=== PATIENT | female | born 1935 | race Caucasian/White ===

== ENCOUNTER → 2020-03-01 13:51 | Outpatient (BNVA) | payer MEDICARE, MEDICAID, SELFPAY | PROVIDERS: Family Provider Nurse Practitioner Family; PCP Nurse Practitioner Family; Visit Provider Nurse Practitioner Family | DX: M25.532 Pain in left wrist (principal); M85.842 Other specified disorders of bone density and structure, left hand; M19.032 Primary osteoarthritis, left wrist | CPT/HCPCS: 73110 ==

== ENCOUNTER 2021-06-15 09:41 | Emergency (ER) | payer MEDICARE, MEDICAID, SELFPAY ==
[2021-06-15 09:50] VITALS: BP 147/79; PULSE 121; RESP 18; TEMP 37.2; O2SAT 97; BMI 24.1
--- NOTE | 2021-06-15 10:03 | XR_ITS ---
WS: [id number] XR shoulder LT min 2V* [id number] REASON FOR EXAM: fall with left shoulder pain FINDINGS: No fracture identified. Proximal humerus and clavicle intact. Mild narrowing of the acromioclavicular joint and glenohumeral joint. No soft tissue abnormality. XR/XR shoulder LT min 2V* [id number] IMPRESSION: Mild arthropathic change for age. No acute abnormality identified.
--- NOTE | 2021-06-15 10:03 | CT_ITS ---
WS: [id number] CT HEAD NONCONTRAST HISTORY: unwitnessed fall, pt is on blood thinner TECHNIQUE: Contiguous axial imaging performed through the brain in 2.5 mm imaging. Bone and soft tiss ue windows. Sagittal and coronal reformats reviewed. All CT scans at [facility] use at least one of these dose optimization techniques: automated exposure control; mA and/or kV adjustment per pa tient size (includes targeted exams where dose is matched to clinical indication); or iterative recon struction. DLP: 723.64 mGy.cm COMPARISON: 08/07/2012 No acute intracranial hemorrhage, midline shift or mass effect. Mild atrophy and moderate confluent white matter disease surrounding the ventricles and extending tow ards the vertex. Mild volume loss bilaterally in the cerebellum. Suspect arachnoid cyst in the LEFT l ateral posterior fossa. Ventricles: Normal size with no hydrocephalus. There is heavy calcification in the distal vertebral arteries and also extending through the intracra nial carotid arteries. Paranasal sinuses: As visualized are clear. Mastoid air cells: Well pneumatized. Calvarium and scalp: Skull is intact with no soft tissue edema or swelling. CT/CT head wo con* [id number] IMPRESSION: 1. No acute intracranial hemorrhage or edema. 2. Severe chronic white matter disease has progressed since 2012.
--- NOTE | 2021-06-15 10:05 | W.ED.EXTPRO ---
HPI - Extremity Problem General: Chief complaint: Extremity Injury, Upper Stated complaint: L SHOULDER PAIN POST FALL Time Seen by Provider: 06/15/21 10:03 History of Present Illness: Patient is an 85-year-old female who comes to the ED with left shoulder pain after fall. Patient's fall occurred sometime between 5 AM and 7 AM this morning. Patient's daughter is present helping provide history. Patient has past medical history of dementia, hypertension, hyperlipidemia, A. fib. Patient was found on the floor in between her bed and dresser. Her only complaint was pain in her left shoulder. Denies any head trauma, headache. Patient is poor historian due to dementia so details of fall are unknown. Associated symptoms: Deny chest pain, fever(s) or rash Review of Systems Const: Denies: fever(s), chills or fatigue Eyes: Denies: change in vision or eye discomfort ENMT: Denies: throat pain, odynophagia, nasal discharge or nasal congestion Card: Denies: chest pain, palpitations, edema, swelling of feet/ankles, dyspnea on exertion or orthopnea Resp: Denies: dyspnea, productive cough or non-productive cough GI: Denies: abdominal pain, nausea, vomiting, diarrhea, constipation or hematochezia : Denies: flank pain, dysuria or hematuria Musc: Reports: extremity pain (left shoulder) and joint pain (left shoulder); Denies: neck pain, back pain or extremity swelling Skin/Breast: Denies: rash or new lesions Neuro: Denies: headache(s), numbness in extremities or weakness in extremities PFS ED PFSH: Medical History Atrial fibrillation Atrial fibrillation with rapid ventricular response CAD (coronary artery disease) Cognitive impairment Easy bruising Hyperlipidemia Hypertension Mitral regurgitation Venous insufficiency Surgical History History of knee replacement History of PTCA Hx of appendectomy Hx of cataract extraction Hx of cholecystectomy Family History Mother CAD (coronary artery disease) Father Cancer Other Hypertension Denies family history of Diabetes Clotting disorder Dementia Chronic kidney disease (CKD) Suicide Anesthesia complication Bleeding disorder Lung disease Stroke Social History Smoking and tobacco status: never smoked Second hand smoke exposure: No Alcohol intake: never Lives independently: Yes Marital status: / service: No Current occupational status: retired History of recent travel: No Current gender identity: Female Physical Exam Const: COMMON NORMALS: alert EXAM LIMITATIONS: altered mental status (Patient has Alzheimer's.) GENERAL APPEARANCE: cooperative HENMT: COMMON NORMALS: normocephalic HEAD & SCALP: normocephalic MOUTH: Normal oral and palatal mucosa present THROAT: posterior oropharynx normal and uvula midline Neck/C-Spine: COMMON NORMALS: supple GENERAL: Yes normal visual inspection Resp: COMMON NORMALS: normal respiratory effort, No retractions, No use of accessory muscles and clear to auscultation bilaterally AUSCULTATION: clear to auscultation bilaterally Cardio: COMMON NORMALS: regular rate, regular rhythm, S1 normal heart sound present, S2 normal heart sound present, No gallops present (Cardio), No clicks present (Cardio), No murmurs present (Cardio) and Peripheral pulses 2+ throughout RATE: regular rate RHYTHM: regular rhythm HEART SOUNDS: S1 normal heart sound present and S2 normal heart sound present PERIPHERAL PULSES: Peripheral pulses 2+ throughout GI: COMMON NORMALS: Normal to inspection, nondistended, normoactive bowel sounds present, Soft to palpation, non-tender and no masses PALPATION: Yes Soft to palpation : COMMON NORMALS: Yes no CVA tenderness BLADDER/KIDNEY EXAM: Yes no CVA tenderness Back/Pelvis: COMMON NORMALS: no CVA tenderness Neuro: COMMON NORMALS: moves all extremities SENSORIUM/ORIENTATION: Yes alert Skin: GENERAL SKIN EXAM: dry skin Course Vital Signs: Vital signs: Vital Signs Temperature 99.0 F 06/15/21 09:50 Pulse Rate 93 06/15/21 11:32 Respiratory Rate 14 06/15/21 11:32 Blood Pressure 140/79 06/15/21 11:32 Pulse Oximetry 97 06/15/21 11:32 MDM - Extremity (Nontraumatic) Medical Decision Making Patient is a 85-year-old female that comes to the ED after having a fall. Patient has Alzheimer's and her daughter is present and providing history. Patient was found down on the floor in her bedroom in between her bed and dresser. Her main complaint was left shoulder and left forearm pain. Patient is on a blood thinner. Vitals are stable. Patient has some left shoulder tenderness along with left wrist tenderness to palpation. No visible deformity seen. Rest of exam is benign. Head CT shows no acute intracranial findings. Shoulder and wrist x-ray showed no acute fractures or findings. Patient diagnosed with left shoulder pain due to accidental fall at home. Follow-up with PCP in 3 to 5 days reevaluation. Return to ED precautions given. Patient's daughter understood and agreed with plan. Lab Data Radiology Impressions Head CT 06/15/21 10:03 IMPRESSION: 1. No acute intracranial hemorrhage or edema. 2. Severe chronic white matter disease has progressed since 2012. Shoulder X-Ray 06/15/21 10:03 IMPRESSION: Mild arthropathic change for age. No acute abnormality identified. Wrist X-Ray 06/15/21 10:45 IMPRESSION: No acute abnormality. Discharge Plan Discharge Patient Disposition: Home Clinical Impression: Fall as cause of accidental injury at home as place of occurrence Qualifiers: Encounter type: initial encounter Qualified Code(s): W19.XXXA - Unspecified fall, initial encounter Left shoulder pain Qualifiers: Chronicity: acute Qualified Code(s): M25.512 - Pain in left shoulder Condition: Stable Prescriptions: No Action potassium chloride 10 mEq capsule, extended release 10 meq PO DAILY 0RF rosuvastatin [Crestor] 10 mg tablet 10 mg PO DAILY 0RF nitroglycerin 6.5 mg capsule, extended release 6.5 mg PO BID 0RF Rx Instructions: allow nitrate-free interval of approx. 10-12 hrs per 24-hour period trazodone 50 mg tablet 25 mg PO DAILY 0RF donepezil 10 mg tablet 10 mg PO DAILY 0RF Eliquis 2.5 mg tablet 2.5 mg PO BID 0RF furosemide 20 mg tablet 20 mg PO DAILY PRN0RF cholecalciferol (vitamin D3) 125 mcg (5,000 unit) capsule 125 mcg PO DAILY 0RF famotidine 20 mg tablet 20 mg PO DAILY 0RF omeprazole 20 mg capsule,delayed release(DR/EC) 20 mg PO BID 0RF metoprolol tartrate 25 mg tablet See Rx Instructions .ROUTE .COMPLEX Qty: 60 5RF Dose Instruction: TAKE ONE TABLET BY MOUTH TWICE DAILY Rx Instructions: TAKE ONE TABLET BY MOUTH TWICE DAILY Discharge Orders: Discharge ED (Routine); Ordered 06/15/21 Ordered By: Pancho Comerío Referrals: July Velez APN [Primary Care Provider] - Discharge Diet: Regular Discharge Activity: Increase activity as tolerated Patient Instructions: Fall Prevention for Older Adults (ED) Activity Restrictions/Additional Instructions: Follow-up with medical provider as directed in 5 to 7 days for reevaluation. Use shoulder sling for the next 2 to 3 days to help with healing. Make sure to have patient take left arm out of sling multiple times throughout the day and do some range of motion exercises to prevent frozen shoulder. Take home medications as previously prescribed. Return to the ER or your medical provider if condition worsens. Please read and understand discharge instructions. Thank you for choosing [facility] for your healthcare needs today. Please realize this is an emergency room and that we are providing you with a medical screening exam and this may not be complete and all inclusive of all the testing and or work up that you may need to determine your ailment or severity of your illness. It is very important that you follow up as instructed or that you return to the Emergency Department should you have concerns or if your condition changes or worsens in any way. Coding Level of Care Code ED Construction Foreman for Idalia De Leon Exam Comprehensive
[2021-06-15] MEDS: ondansetron 2 mg/ML SDV 2 mL 4 MG IVP (10:40)
[2021-06-15 10:42] VITALS: RESP 18
[2021-06-15] MEDS: morphine 4 mg/mL SDV 1 mL IVP (10:42)
--- NOTE | 2021-06-15 10:45 | XR_ITS ---
WS: [id number] XR wrist LT min 3V* [id number] REASON FOR EXAM: fall with pain in wrist FINDINGS: Moderately decreased bone density. No fracture identified. Relatively normal joint spaces and normal bony alignment of the wrist. No soft tissue abnormality. XR/XR wrist LT min 3V* [id number] IMPRESSION: No acute abnormality.
[2021-06-15 11:32] VITALS: BP 140/79; PULSE 93; RESP 14; O2SAT 97
== END 2021-06-15 12:33 | disposition home or self-care (01) ==
PROVIDERS: Emergency Provider Physician Assistant; PCP Nurse Practitioner Family
DX: I25.10 Atherosclerotic heart disease of native coronary artery without angina pectoris (principal); E78.5 Hyperlipidemia, unspecified; I10 Essential (primary) hypertension; Z79.01 Long term (current) use of anticoagulants
CPT/HCPCS: 70450; 73030; 73110; 96374; 96375; 99283; J2270; J2405

== ENCOUNTER → 2021-10-06 10:08 | Outpatient (BNVA) | payer MEDICARE, MEDICAID, SELFPAY | PROVIDERS: PCP Nurse Practitioner Family; Visit Provider Internal Medicine Cardiovascular Disease | DX: I48.20 Chronic atrial fibrillation, unspecified (principal); I25.10 Atherosclerotic heart disease of native coronary artery without angina pectoris; I34.0 Nonrheumatic mitral (valve) insufficiency; I10 Essential (primary) hypertension; E78.2 Mixed hyperlipidemia | CPT/HCPCS: 99214 ==

== ENCOUNTER 2021-11-22 12:06 | Emergency (ER) | payer MEDICARE, MEDICAID, SELFPAY ==
[2021-11-22 12:43] VITALS: BP 100/66; PULSE 105; RESP 15; O2SAT 96
--- NOTE | 2021-11-22 12:49 | CT_ITS ---
WS: [id number] CT HEAD TECHNIQUE: Noncontrast CT of the head obtained from the skullbase to the vertex. CLINICAL INFORMATION: syncope COMPARISON: None. DLP: 905.[address] scans at [facility] use at least one of these dose optimization techniques: automated e xposure control; mA and/or kV adjustment per patient size (includes targeted exams where dose is matc hed to clinical indication); or iterative reconstruction. FINDINGS: No evidence of intracranial hemorrhage or mass effect. Ventricular system and basal cisterns are xiong nt. Moderate small vessel changes with moderate parenchymal volume loss. No extra-axial fluid collect ions. No evidence of mass or mass effect. Intracranial vascular calcification. Paranasal sinuses and mastoid air cells are well aerated. .Normal visualized soft tissues. CT/CT head wo con* [id number] IMPRESSION: 1. No evidence of intracranial hemorrhage or mass effect. 2. Moderate small vessel changes with moderate parenchymal volume loss. 3. No acute intracranial findings.
--- NOTE | 2021-11-22 12:49 | ECG_ITS ---
[facility] Test Date: 2021-11-22 Pat Name: Madison Esparza Department: Room: Gender: Female Fund Accounting Manager: : 1935 Requested By: Lucius Chambers Order Number: [id number] Balbina MD: Noris Finn M.D. Measurements Intervals [place] Rate: 94 P: RI: QRS: 50 QRSD: 77 T: 42 QT: 336 QTc: 421 Interpretive Statements ATRIAL FIBRILLATION SEPTAL MYOCARDIAL INFARCTION , OF INDETERMINATE AGE [40+ ms Q WAVE IN V1/V2] Compared to ECG 12/19/2018 10:36:05 Myocardial infarct finding now present T-wave abnormality no longer present Electronically Signed On 11-22-2021 20:54:32 CDT by Noris Finn M.D. [id number]
--- NOTE | 2021-11-22 12:49 | XR_ITS ---
WS: [id number] XR chest 1V portable [id number] REASON FOR EXAM: light-headedness FINDINGS: The chest is unchanged compared to 11/29/2018. Moderate tortuosity the thoracic aorta. Size within normal limits. Calcified granulomatous disease in both hemithoraces. No acute pulmonary parenchymal or pleural abnormality. Mild thoracic scoliosis convex left with mild degenerative disc changes in the mid thoracic spine. XR/XR chest 1V portable [id number] IMPRESSION: Stable chest with no acute abnormality.
--- NOTE | 2021-11-22 13:06 | ED_ITS ---
HPI - General Adult General: Chief complaint: Weakness Stated complaint: HEADACHE, WEAKNESS, NAUSEA Time Seen by Provider: 11/22/21 12:26 History of Present Illness: Patient is an 85-year-old female with a history of CAD with stent x1, hypothyroidism, mild CHF who presents the emergency room with concerns for syncope. Patient is functional aortic herself at baseline. Patient went to [employer] [place] for lunch and had an episode of witnessed syncope. EMS was called and patient was brought to the emergency room. Patient does not member what happened. Patient baseline has mild dementia. Patient is on Eliquis for anticoagulation. Patient denies any pain anywhere. Patient denies any associated chest pain, shortness breath, palpitation, lightheadedness, nausea/vomiting, diarrhea, melena or hematochezia. Patient has no other acute complaints including focal weakness. Denies any complaints. Onset: 1 hr ago Duration:once Location:home Severity:moderate Associated symptoms: Deny chest pain, dyspnea, nausea, rash, palpitations or vomiting Review of Systems Const: Denies: fever(s) or chills Eyes: Denies: change in vision ENMT: Denies: mouth pain Card: Denies: chest pain or palpitations Resp: Denies: dyspnea or non-productive cough GI: Denies: abdominal pain, nausea, vomiting or diarrhea : Denies: dysuria Musc: Denies: extremity pain Skin/Breast: Denies: rash or new lesions Neuro: Reports: other (+syncope, light-headedness); Denies: weakness in extremities Psych: Reports: other (Normal mood) Elmo/Lymph: Denies: easy bruising PFSH ED PFSH: Medical History Atrial fibrillation Atrial fibrillation with rapid ventricular response CAD (coronary artery disease) Cognitive impairment Easy bruising Hyperlipidemia Hypertension Mitral regurgitation Venous insufficiency Surgical History History of knee replacement History of PTCA Hx of appendectomy Hx of cataract extraction Hx of cholecystectomy Family History Mother CAD (coronary artery disease) Father Cancer Other Hypertension Denies family history of Diabetes Clotting disorder Dementia Chronic kidney disease (CKD) Suicide Anesthesia complication Bleeding disorder Lung disease Stroke Social History Smoking and tobacco status: never smoked Second hand smoke exposure: No Alcohol intake: never Lives independently: Yes Marital status: / service: No Current occupational status: retired History of recent travel: No Current gender identity: Female Physical Exam Const: COMMON NORMALS: alert HENMT: COMMON NORMALS: atraumatic HEAD & SCALP: atraumatic MOUTH: moist mucous membranes not abnormal Eye: COMMON NORMALS: EOMs intact bilaterally and conjunctivae normal CONJUNCTIVA: Yes conjunctivae normal Neck/C-Spine: COMMON NORMALS: full ROM and supple Resp: COMMON NORMALS: normal respiratory effort and clear to auscultation bilaterally AUSCULTATION: clear to auscultation bilaterally Cardio: RATE: tachycardic OTHER: +irregular tachycardia GI: COMMON NORMALS: Soft to palpation and non-tender PALPATION: Yes Soft to palpation Extremity: COMMON NORMALS: full ROM Neuro: SENSORIUM/ORIENTATION: Yes alert MOTOR EXAM: No Abnormal motor strength present and Other motor observations present (no focal motor deficits) OTHER: Mental status? Awake, alert, and oriented to self and year Following simple axial and appendicular commands.? Has appropriate fund of knowledge, comprehension, and insight.? Able to recall and understands pertinent aspects of medical history and current treatment status.? ? Language? Speech is fluent without word-finding difficulties.? Intact naming, expression, dental office receptionist, and repetition.? ? Cranial nerves? 2,3,4,6: PERRL, EOMI with no nystagmus. 5: Intact sensation to light touch, symmetric? 7: Smile symmetrical, no facial droop.? 8: Hearing grossly intact.? 9,10: Normal palate movement.? 11: Normal strength in trapezius bilaterally 12: Tongue protrudes midline.? ? Motor examination? Normal bulk & tone. Strength as follows (R/L): Delts (5/5), Biceps (5/5), Triceps (5/5), Wrist ext (5/5), hip flexors (5/5), plantarflexors (5/5), dorsiflexors (5/5). ? Sensation? Light Touch: Grossly intact and equal in upper and lower extremities bilaterally? Romberg: Negative.? Distal joint position sense intact ? Coordination? Cplork-kv-hkjj-finger movements intact without dysmetria or past-pointing.? Rapid fingertaps: preserved amplitude without decriment.? No tremor, myoclonus or truncal ataxia.? ? Gait/stance? Steady, normal narrow base gait with appropriate arm swing and turning.? Tandem gait without hesitation or loss of balance. Psych: COMMON NORMALS: speech normal SPEECH: Yes normal speech MOOD & AFFECT: Yes euthymic mood Course Vital Signs: Vital signs: Vital Signs Pulse Rate 105 H 11/22/21 12:43 Respiratory Rate 15 11/22/21 12:43 Blood Pressure 100/66 11/22/21 12:43 Pulse Oximetry 96 11/22/21 12:43 MDM - General Adult Medical Decision Making 85-year-old female history of baseline dementia, atrial fibrillation on Eliquis, mild CHF, CAD with stent x1 presenting to the emergency room with concerns for syncope an hour ago. Patient had a witnessed episode. Patient does not recall what happened. Physical exam, patient is neuro exam is intact. Hemodynamically stable. No signs of dysrhythmia on the site monitor. Patient received 500 cc of fluids. Initial troponin of 10. Patient has no active complaints chest pain, lightheadedness or additional syncope episodes. At 2:30pm, patient and daughter Carmen electing to leave AMA. Patient counseled regarding risks of leaving including severe morbidity, brain , hypoxia, arrythmia, , chest pain, or any other unwanted consequences of leaving against medical advice today. Patient verbalizes understanding of the risks and still wishes to leave AMA. Signed AMA paperwork. Patient advised that patient is welcome to return at any time. Was instructed that patient may come back if symptoms continue to persist and that emergent adverse conditions have not fully been ruled out. Patient is A&Ox3 and has capacity and is of sound mind to make decisions. Lab Data : 11/22/21 13:07 11/22/21 13:07 Radiology Impressions Chest X-Ray 11/22/21 12:49 IMPRESSION: Stable chest with no acute abnormality. Head CT 11/22/21 12:49 IMPRESSION: 1. No evidence of intracranial hemorrhage or mass effect. 2. Moderate small vessel changes with moderate parenchymal volume loss. 3. No acute intracranial findings. Laboratory Results WBC 5.7 10^3/uL (4.0-10.0) 11/22/21 13:07 RBC 4.79 10^6/uL (4.1-5.3) 11/22/21 13:07 Hgb 14.1 g/dL (11.5-15.3) 11/22/21 13:07 Hct 43.7 % (37.0-47.0) 11/22/21 13:07 MCV 91.2 fl (81-99) 11/22/21 13:07 MCH 29.4 pg (28.0-34.0) 11/22/21 13:07 MCHC 32.3 g/dL (30.0-36.0) 11/22/21 13:07 RDW 13.3 % (12.1-15.1) 11/22/21 13:07 Plt Count 221 10^3/cmm (130-400) 11/22/21 13:07 MPV 10.9 fL (7.4-10.4) H 11/22/21 13:07 Neut % (Auto) 69.8 % 11/22/21 13:07 Lymph % (Auto) 19.9 % 11/22/21 13:07 [place] % (Auto) 8.4 % 11/22/21 13:07 Eos % (Auto) 0.7 % 11/22/21 13:07 Baso % (Auto) 0.9 % 11/22/21 13:07 Neut # (Auto) 4.01 10^3/uL (1.8-7.7) 11/22/21 13:07 Lymph # (Auto) 1.1 10^3/uL (0.8-4.8) 11/22/21 13:07 [place] # (Auto) 0.5 10^3/uL (0.2-0.9) 11/22/21 13:07 Eos # (Auto) 0.0 10^3/uL (0.0-0.8) 11/22/21 13:07 Baso # (Auto) 0.1 10^3/uL (0.0-0.1) 11/22/21 13:07 Nucleated RBC % (auto) 0 % 11/22/21 13:07 Nucleated RBCs # 0.0 /100WBC 11/22/21 13:07 Sodium 141 mmol/L (136-145) 11/22/21 13:07 Potassium 3.8 mmol/L (3.5-5.1) 11/22/21 13:07 Chloride 104 mmol/L (98-107) 11/22/21 13:07 Carbon Dioxide 25 mmol/L (22-29) 11/22/21 13:07 Anion Gap 15.8 (5-19) 11/22/21 13:07 BUN 7 mg/dL (8-23) L 11/22/21 13:07 Creatinine 0.7 mg/dL (0.5-0.9) 11/22/21 13:07 GFR Calculation Not Reportable 11/22/21 13:07 Glucose 86 mg/dL (65-115) 11/22/21 13:07 Calculated Osmolality 289 mOsm/kg (285-295) 11/22/21 13:07 Calcium 9.1 mg/dL (8.5-10.5) 11/22/21 13:07 Total Bilirubin 0.6 mg/dL (0.15-1.2) 11/22/21 13:07 AST 18 U/L (0-32) 11/22/21 13:07 ALT 9 U/L (0-33) 11/22/21 13:07 Alkaline Phosphatase 71 IU/L (35-105) 11/22/21 13:07 Troponin T Baseline 11 ng/L (0-10) H 11/22/21 13:07 Total Protein 6.2 g/dL (6.6-8.7) L 11/22/21 13:07 Albumin 3.7 g/dL (3.5-5.2) 11/22/21 13:07 Globulin 2.5 g/dL (1.3-4.6) 11/22/21 13:07 Lipase 28 U/L (13-60) 11/22/21 13:07 Discharge Plan Discharge Patient Disposition: Left Against Medical Advice Clinical Impression: Syncope and collapse Condition: Stable Prescriptions: No Action potassium chloride 10 mEq capsule, extended release 10 meq PO DAILY 0RF rosuvastatin [Crestor] 10 mg tablet 10 mg PO BEDTIME 0RF nitroglycerin 6.5 mg capsule, extended release 6.5 mg PO BID 0RF Rx Instructions: allow nitrate-free interval of approx. 10-12 hrs per 24-hour period donepezil 10 mg tablet 10 mg PO BEDTIME 0RF Eliquis 2.5 mg tablet 2.5 mg PO BID 0RF furosemide 20 mg tablet 20 mg PO DAILY PRN (Reason: Edema) 0RF cholecalciferol (vitamin D3) 125 mcg (5,000 unit) capsule 125 mcg PO DAILY 0RF omeprazole 20 mg capsule,delayed release(DR/EC) 20 mg PO BID 0RF trazodone 50 mg tablet 75 mg PO BEDTIME 0RF triamcinolone acetonide 0.1 % cream 1 applic TOPICAL BID 0RF Nystop 100,000 unit/gram powder 1 applic TOPICAL BID 0RF metoprolol tartrate 25 mg tablet 25 mg PO BID 0RF Referrals: Velez,July, CONSTRUCTION EQUIPMENT OVERHAULER [Primary Care Provider] - Coding Level of Care Code ED Stiff Straw Hat Washer for Chg Fwd Exam Comprehensive
[2021-11-22 13:11] LABS: Basophils # 0.1 10^3/uL (0.0-0.1); Basophils % 0.9 %; Eosinophils % 0.7 %; Hematocrit 43.7 % (37.0-47.0); Hemoglobin 14.1 g/dL (11.5-15.3); Lymphocytes # 1.1 10^3/uL (0.8-4.8); Lymphocytes % 19.9 %; Mean Corpuscular HGB Conc 32.3 g/dL (30.0-36.0); Mean Corpuscular Hemoglobin 29.4 pg (28.0-34.0); Mean Corpuscular Volume 91.2 fl (81-99); Mean Platelet Volume 10.9 fL (7.4-10.4); Monocytes # 0.5 10^3/uL (0.2-0.9); Monocytes % 8.4 %; Neutrophils # 4.01 10^3/uL (1.8-7.7); Neutrophils % 69.8 %; Nucleated Red Blood Cells % 0 %; Platelet Count 221 10^3/cmm (130-400); Red Blood Count 4.79 10^6/uL (4.1-5.3); Red Cell Distribution Width 13.3 % (12.1-15.1); White Blood Count 5.7 10^3/uL (4.0-10.0)
[2021-11-22] MEDS: sodium chloride 0.9% 500 ML IV (13:15)
--- NOTE | 2021-11-22 13:18 | PC.NURSE ---
pt placed on continuous spo2, nibp, and cm.
[2021-11-22 13:30] LABS: Troponin(5th) Baseline 11 ng/L (0-10)
[2021-11-22 13:32] LABS: Alanine Aminotransferase 9 U/L (0-33); Albumin Level 3.7 g/dL (3.5-5.2); Alkaline Phosphatase 71 IU/L (35-105); Anion Gap 15.8 (5-19); Aspartate Amino Transferase 18 U/L (0-32); Blood Urea Nitrogen 7 mg/dL (8-23); Calcium 9.1 mg/dL (8.5-10.5); Carbon Dioxide 25 mmol/L (22-29); Chloride 104 mmol/L (98-107); Globulin 2.5 g/dL (1.3-4.6); Glucose 86 mg/dL (65-115); Lipase 28 U/L (13-60); Osmolality Calculated 289 mOsm/kg (285-295); Potassium 3.8 mmol/L (3.5-5.1); Sodium 141 mmol/L (136-145); Total Bilirubin 0.6 mg/dL (0.15-1.2); Total Protein 6.2 g/dL (6.6-8.7)
[2021-11-22 14:39] VITALS: BP 134/92; PULSE 92; RESP 14; O2SAT 97
== END 2021-11-22 14:41 | disposition left against medical advice (07) ==
PROVIDERS: Emergency Provider Emergency Medicine; PCP Nurse Practitioner Family
DX: R55 Syncope and collapse (principal); Z53.21 Procedure and treatment not carried out due to patient leaving prior to being seen by health care provider; Z79.01 Long term (current) use of anticoagulants; I25.10 Atherosclerotic heart disease of native coronary artery without angina pectoris; E78.5 Hyperlipidemia, unspecified; I10 Essential (primary) hypertension
CPT/HCPCS: 70450; 71045; 80053; 83690; 84484; 85025; 93005; 99285; J7040

== ENCOUNTER → 2022-04-13 15:08 | Outpatient (BNVA) | payer MEDICARE, MEDICAID, SELFPAY | PROVIDERS: PCP Nurse Practitioner Family; Visit Provider Internal Medicine Cardiovascular Disease | DX: I48.91 Unspecified atrial fibrillation (principal); I25.10 Atherosclerotic heart disease of native coronary artery without angina pectoris; I34.0 Nonrheumatic mitral (valve) insufficiency; I10 Essential (primary) hypertension; E78.2 Mixed hyperlipidemia; Z79.01 Long term (current) use of anticoagulants | CPT/HCPCS: 99214 ==

== ENCOUNTER 2022-09-19 10:44 | Emergency (ER) | payer MEDICARE, MEDICAID, SELFPAY ==
[2022-09-19] VITALS (12 sets, daily range): BP systolic 101–135; BP diastolic 86–107; PULSE 101; RESP 14–20; TEMP 36.6; O2SAT 92–94; BMI 24.5
--- NOTE | 2022-09-19 10:59 | XRR_ITS ---
PROCEDURE INFORMATION: Exam: XR Chest Exam date and time: 09/19/2022 11:37 AM Age: 86 years old Clinical indication: Injury or trauma; Fall; Blunt trauma (contusions or hematomas) TECHNIQUE: Imaging protocol: Radiologic exam of the chest. Views: 1 view. COMPARISON: CR XR chest 1V portable [id number] 11/22/2021 12:59 PM FINDINGS: Lungs: Unremarkable. No consolidation. Pleural spaces: Unremarkable. No pleural effusion. No pneumothorax. Heart/Mediastinum: Borderline cardiomegaly otherwise negative. Bones/joints: Unremarkable for age. XR/XR chest 1V portable [id number] IMPRESSION: Negative chest exam.
--- NOTE | 2022-09-19 10:59 | XRR_ITS ---
PROCEDURE INFORMATION: Exam: XR Right Knee Exam date and time: 09/19/2022 11:30 AM Age: 86 years old Clinical indication: Pain and injury or trauma; Fall; Blunt trauma; Right; Prior surgery; Surgery date: 6+ months; Surgery type: RT knee; Additional info: Fall/pain TECHNIQUE: Imaging protocol: Radiologic exam of the right knee. Views: 3 views. COMPARISON: No relevant prior studies available. FINDINGS: Bones/joints: Bones are mildly demineralized. There are moderate degenerative changes most pronounced within the medial knee compartment with joint space narrowing, subchondral sclerosis and marginal osteophyte formation. There is no fracture, dislocation or malalignment. Soft tissues: Unremarkable. XR/XR knee RT 3V* [id number] IMPRESSION: Moderate tricompartmental osteoarthritis most pronounced within the medial knee compartment. No acute bony abnormalities.
--- NOTE | 2022-09-19 10:59 | CT_ITS ---
WS: [id number] CT CERVICAL SPINE HISTORY: fall trauma TECHNIQUE: Contiguous 2.0 mm axial imaging performed through the entire cervical spine. Sagittal and coronal reformats also performed. All CT scans at [facility] use at least one of these dose o ptimization techniques: automated exposure control; mA and/or kV adjustment per patient size (include s targeted exams where dose is matched to clinical indication); or iterative reconstruction. DLP: 968.68 mGy.cm COMPARISON: None available. Marked osteopenia. Severe disc space narrowing at C5-6 and C6-7. Facet joints are all narrowed. There are no acute fractures. Craniocervical junction is normal. Marked narrowing of the predental space. Lateral masses of C1 and C2 are aligned. C2-C3: Bilateral facet joint arthritis. C3-C4: Moderate bilateral foraminal stenosis with marked facet arthritis. Small central disc protrusi on. C4-C5: Marked osteophytic ridging with foraminal stenosis. C5-C6: Marked osteophytic ridging with foraminal stenosis. C6-C7: Mild osteophytic ridging with mild foraminal stenosis. C7-T1: Normal. Heavy calcifications in the vertebral arteries. CT/CT cervical spin wo con* [id number] IMPRESSION: 1. No acute cervical spine fracture. 2. Advanced degenerative changes throughout the cervical spine. Multilevel for aminal stenoses.
--- NOTE | 2022-09-19 10:59 | XRR_ITS ---
PROCEDURE INFORMATION: Exam: XR Right Hip Exam date and time: 09/19/2022 11:35 AM Age: 86 years old Clinical indication: Injury or trauma; Fall; Blunt trauma (contusions or hematomas); Right; Hip; Additional info: Fall/pain; One view pelvis too please TECHNIQUE: Imaging protocol: Radiologic exam of the right hip. Views: 1 view hip with pelvis when performed. COMPARISON: CT abdomen pelvis w con* [id number] 01/07/2019 11:29 AM FINDINGS: Bones/joints: Mild-moderate degenerative changes right hip joint consisting of some joint space narrowing, subchondral sclerosis and marginal spurring. No fracture or malalignment. Soft tissues: Evidence of lower abdominal wall mesh projecting over the pubic rami otherwise soft tissues are unremarkable.. XR/XR hip RT 2-3V wo/w pel* [id number] IMPRESSION: Mild-moderate degenerative changes right hip joint. No acute bony abnormalities.
--- NOTE | 2022-09-19 10:59 | CT_ITS ---
WS: [id number] CT HEAD NONCONTRAST HISTORY: trauma/fall TECHNIQUE: Contiguous axial imaging performed through the brain in 2.5 mm imaging. Bone and soft tiss ue windows. Sagittal and coronal reformats reviewed. All CT scans at [facility] use at least one of these dose optimization techniques: automated exposure control; mA and/or kV adjustment per pa tient size (includes targeted exams where dose is matched to clinical indication); or iterative recon struction. DLP: 968.68 mGy.cm COMPARISON: 11/22/2021 No acute intracranial hemorrhage, midline shift or mass effect. Severe atrophy and severe small vessel ischemic changes which are confluent. Very similar to the prio r study. Moderate to severe cerebellar atrophy. Ventricles: Mild diffuse ventriculomegaly and prominent extra-axial spaces on the basis of atrophy. No inferior displacement of cerebellar tonsils. Paranasal sinuses: As visualized are clear. Mastoid air cells: Well pneumatized. Calvarium and scalp: Hyperostosis frontalis interna. CT/CT head wo con* [id number] IMPRESSION: 1. 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 Very similar to the prior study of 01/21/2022. 2. No acute intracranial hemorrhage.
--- NOTE | 2022-09-19 11:00 | ED_ITS ---
HPI - Fall General: Chief Complaint: Fall Stated Complaint: fall, neck pain Time Seen by Provider: 09/19/22 10:47 Source: patient and family (granddaughter) Mode of arrival: wheelchair Limitations: no limitations History of Present Illness: Patient is an 86-year-old female who presents to ED today along with her granddaughter for evaluation following a fall. Granddaughter states patient's balance and gait have been progressively worsening over a chronic period of time and she has had multiple previous falls that they attribute to tripping. Granddaughter states she has multiple tripping hazards in her home and hypothesizes that is most likely what happened today. She states patient also has a shuffling gait making her prone to falls. Granddaughter states they have cameras in the patient's home and noticed this morning she was on the ground thus went to check on her. It was confirmed that fall was sometime this morning/afternoon. Patient herself is not able to tell me why she fell. She states she does not remember feeling dizzy or lightheaded. She denies experiencing any chest pain, shortness of breath, difficulty breathing. She states she has felt normal since the fall. Patient is on anticoagulation for atrial fibrillation. She complains to me of a headache although later denies this and neck pain that she attributes to her c-collar. MD complaint: fall Onset (ago): hour(s) Fall from: standing Fall witnessed: no Place fall occurred: home Loss of consciousness: None Prolonged down time: unclear Symptoms prior to fall: none Associated symptoms-after fall: Reports headache(s) (initially complains of a headache but later states she does not have one) and neck pain (states this is due to cervical collar); Denies abdominal pain, chest pain, confusion, hematuria, lightheadedness or vertigo Review of Systems Const: Denies: fever(s), chills, body aches, fatigue or malaise Eyes: Denies: change in vision, blurry vision, photophobia, eye discharge, floaters or seeing flashes ENMT: Denies: throat pain, odynophagia, ear or mastoid pain, ear discharge, nasal discharge, epistaxis or sinus pain Card: Denies: chest pain, palpitations, lightheadedness, syncope or pre- syncope Resp: Denies: dyspnea or pain on inspiration GI: Denies: abdominal pain : Denies: flank pain or hematuria Musc: Reports: neck pain (states this is due to cervical collar); Denies: back pain, extremity pain or joint pain Neuro: Reports: headache(s) (initially complains of a headache but later states she does not have one) and frequent falls; Denies: numbness in extremities, weakness in extremities, sensory changes, lack of coordination, dizziness, vertigo, confusion, behavioral changes, Slurred speech present or difficulty communicating thoughts PFSH ED PFSH: Medical History Atrial fibrillation Atrial fibrillation with rapid ventricular response CAD (coronary artery disease) Cognitive impairment Easy bruising Hyperlipidemia Hypertension Mitral regurgitation Venous insufficiency Surgical History History of knee replacement History of PTCA Hx of appendectomy Hx of cataract extraction Hx of cholecystectomy Family History Mother CAD (coronary artery disease) Father Cancer Other Hypertension Denies family history of Diabetes Clotting disorder Dementia Chronic kidney disease (CKD) Suicide Anesthesia complication Bleeding disorder Lung disease Stroke Social History Smoking and tobacco status: never smoked Second hand smoke exposure: No Alcohol intake: never Substance/Drug Use: never Lives independently: Yes Marital status: / service: No Current occupational status: retired Current gender identity: Female Physical Exam Const: COMMON NORMALS: no acute distress, average body habitus, patient oriented x3, no limitations, healthy appearing, alert and well nourished GENERAL APPEARANCE: cooperative ORIENTATION/CONSCIOUSNESS: Yes awake, Yes oriented to person, Yes oriented to place and Yes oriented to time HENMT: COMMON NORMALS: normocephalic, atraumatic and TM's normal bilaterally HEAD & SCALP: normal to inspection, normocephalic and atraumatic; no Nguyen's sign, no hematoma and no raccoon eyes FACE & SINUS: normal facial exam TYMPANIC MEMBRANE: TM's normal bilaterally MOUTH: other (no intraoral injuries noted) Eye: COMMON NORMALS: Equal, round and reactive pupils present and EOMs intact bilaterally GENERAL EYE: appearance normal, both eyes and all related structures and normal light reflex PUPIL: Yes Equal, round and reactive pupils present DIRECT OPHTHALMOSCOPY: Yes normal light reflex Neck/C-Spine: GENERAL: Yes normal visual inspection CERVICAL SPINE: No pain with cervical ROM, Yes Cervical spine tenderness, No step off deformity and No Paracervical muscle tenderness OTHER: pt currently wearing c-collar at time of my examination Chest: COMMONS NORMALS: normal inspection of the chest and normal palpation of entire chest wall Resp: COMMON NORMALS: normal respiratory effort and clear to auscultation bilaterally AUSCULTATION: clear to auscultation bilaterally Cardio: COMMON NORMALS: regular rate RATE: regular rate RHYTHM: abnormal rhythm irregularly irregular (pt has history of atrial fib) GI: COMMON NORMALS: Normal to inspection, nondistended, normoactive bowel sounds present, Soft to palpation, non-tender, No hepatosplenomegaly present and no masses INSPECTION: Yes normal to inspection and No abdominal wall ecchymosis AUSCULTATION: Yes normoactive bowel sounds PALPATION: Yes Soft to palpation and Yes No hepatosplenomegaly present Back/Pelvis: COMMON NORMALS: thoracic and lumbar spine normal to inspection, no thoracic nor lumbar tenderness and thoraco-lumbar ROM normal Extremity: COMMON NORMALS: normal to inspection, capillary refill normal, no clubbing, cyanosis or edema, no calf tenderness and no pedal edema GENERAL: Yes normal exam except as noted RIGHT LOWER EXTREMITY: Yes hip joint Right hip: Yes inspection (no shortening/rotation noted), Yes palpation (TTP lateral/posterior), Yes ROM (limited/painful ROM) and Yes neurovascular exam (normal) and Yes knee joint Right knee: Yes inspection (old vertical incision), Yes ROM (TTP with ROM) and Yes neurovascular exam (normal) Neuro: ERASMO COMA SCALE: document GCS findings [place] coma scale eye opening: Spontaneous [place] coma scale verbal response: Orientated [place] coma scale motor response: Obey commands [place] coma scale total score: 15 COMMON NORMALS: patient oriented x3, CN's II-XII intact bilaterally, moves all extremities, no focal motor deficits and no sensory deficits noted SENSORIUM/ORIENTATION: Yes alert, Yes oriented to person, Yes oriented to place and Yes oriented to time SPEECH: speech normal GAIT: Yes Normal gait present Skin: COMMON NORMALS: no rashes or lesions noted GENERAL SKIN EXAM: no rashes or lesions noted TRAUMA: no lacerations or abrasions Course Vital Signs: Vital signs: Vital Signs Temperature 97.9 F 05/16/23 10:46 Pulse Rate 101 H 09/19/22 10:46 Respiratory Rate 14 09/19/22 12:10 Blood Pressure 127/94 09/19/22 13:35 Pulse Oximetry 94 09/19/22 12:10 Oxygen Delivery Me thod Room Air 09/19/22 10:46 MDM - Fall Medical Decision Making Patient here following a fall in her home. Fall was unwitnessed. It was speculated that it was most likely mechanical however patient could not confirm this thus work-up was initiated. Her blood work at this time is nonactionable. Her UA is grossly contaminated. She has no signs or symptoms of a UTI. XR and CT imaging are negative. Patient was able to ambulate well here in the emergency department. She will be allowed discharge at this time. Lab Data 09/19/22 10:56 09/19/22 10:56 Radiology Impressions Cervical Spine CT 09/19/22 10:59 IMPRESSION: 1. No acute cervical spine fracture. 2. Advanced degenerative changes throughout the cervical spine. Multilevel foraminal stenoses. Chest X-Ray 09/19/22 10:59 IMPRESSION: Negative chest exam. Head CT 09/19/22 10:59 IMPRESSION: 1. 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 Very similar to the prior study of 01/21/2022. 2. No acute intracranial hemorrhage. Hip/Pelvis X-Ray 09/19/22 10:59 IMPRESSION: Mild-moderate degenerative changes right hip joint. No acute bony abnormalities. Knee X-Ray 09/19/22 10:59 IMPRESSION: Moderate tricompartmental osteoarthritis most pronounced within the medial knee compartment. No acute bony abnormalities. Laboratory Results WBC 5.9 10^3/uL (4.0-10.0) 09/19/22 10:56 RBC 4.90 10^6/uL (4.1-5.3) 09/19/22 10:56 Hgb 14.0 g/dL (11.5-15.3) 09/19/22 10:56 Hct 45.0 % (37.0-47.0) 09/19/22 10:56 MCV 91.8 fl (81-99) 09/19/22 10:56 MCH 28.6 pg (28.0-34.0) 09/19/22 10:56 MCHC 31.1 g/dL (30.0-36.0) 09/19/22 10:56 RDW 13.4 % (12.1-15.1) 09/19/22 10:56 Plt Count 201 10^3/cmm (130-400) 09/19/22 10:56 MPV 11.0 fL (7.4-10.4) H 09/19/22 10:56 Neut % (Auto) 64.7 % 09/19/22 10:56 Lymph % (Auto) 25.6 % 09/19/22 10:56 [place] % (Auto) 7.2 % 09/19/22 10:56 Eos % (Auto) 1.5 % 09/19/22 10:56 Baso % (Auto) 0.7 % 09/19/22 10:56 Neut # (Auto) 3.84 10^3/uL (1.8-7.7) 09/19/22 10:56 Lymph # (Auto) 1.5 10^3/uL (0.8-4.8) 09/19/22 10:56 [place] # (Auto) 0.4 10^3/uL (0.2-0.9) 09/19/22 10:56 Eos # (Auto) 0.1 10^3/uL (0.0-0.8) 09/19/22 10:56 Baso # (Auto) 0.0 10^3/uL (0.0-0.1) 09/19/22 10:56 Nucleated RBC % (auto) 0 % 09/19/22 10:56 Nucleated RBCs # 0.0 /100WBC 09/19/22 10:56 Sodium 141 mmol/L (136-145) 09/19/22 10:56 Potassium 4.1 mmol/L (3.5-5.1) 09/19/22 10:56 Chloride 103 mmol/L (98-107) 09/19/22 10:56 Carbon Dioxide 27 mmol/L (22-29) 09/19/22 10:56 Anion Gap 15.1 (5-19) 09/19/22 10:56 BUN 10 mg/dL (8-23) 09/19/22 10:56 Creatinine 0.8 mg/dL (0.5-0.9) 09/19/22 10:56 GFR Calculation Not Reportable 09/19/22 10:56 Glucose 82 mg/dL (65-115) 09/19/22 10:56 Calculated Osmolality 290 mOsm/kg (285-295) 09/19/22 10:56 Calcium 8.8 mg/dL (8.5-10.5) 09/19/22 10:56 Total Bilirubin 0.6 mg/dL (0.15-1.2) 09/19/22 10:56 AST 23 U/L (0-32) 09/19/22 10:56 ALT 15 U/L (0-33) 09/19/22 10:56 Alkaline Phosphatase 75 U/L (35-105) 09/19/22 10:56 Creatine Kinase 123 U/L (26-192) 09/19/22 10:56 Troponin T Baseline 9 ng/L (0-10) 09/19/22 10:56 Troponin T 120 Minute 9.69 ng/L (0-10) 09/19/22 12:52 Delta Troponin T 0.69 ABS# (0-10) 09/19/22 12:52 Total Protein 6.1 g/dL (6.6-8.7) L 09/19/22 10:56 Albumin 3.7 g/dL (3.5-5.2) 09/19/22 10:56 Globulin 2.4 g/dL (1.3-4.6) 09/19/22 10:56 Urine Color Dark yellow (Yellow) 09/19/22 12:36 Urine Appearance Cloudy (CLEAR) A 09/19/22 12:36 Urine pH 5 (5-7) 09/19/22 12:36 Ur Specific [place] 1.030 (1.005-1.030) 09/19/22 12:36 Urine Protein Neg (Negative) 09/19/22 12:36 Urine Glucose (UA) Norm (Normal) 09/19/22 12:36 Urine Ketones Negative (Negative) 09/19/22 12:36 Urine Blood Neg (Negative) 09/19/22 12:36 Urine Nitrate Negative (Negative) 09/19/22 12:36 Urine Bilirubin 1+ (Negative) H 09/19/22 12:36 Urine Urobilinogen 1 mg/dL (Negative) H 09/19/22 12:36 Ur Leukocyte Esterase 1+ (Negative) H 09/19/22 12:36 Urine RBC 0-4 /hpf (0-2) H 09/19/22 12:36 Urine WBC 25-40 /hpf (0-5) H 09/19/22 12:36 Ur Squamous Epith Cells 15-25 /hpf (0-5) H 09/19/22 12:36 Amorphous Sediment Not Reportable 09/19/22 12:36 Urine Bacteria 1+ /hpf (NONE) H 09/19/22 12:36 Urine Mucus 1+ /hpf 09/19/22 12:36 Discharge Plan Discharge Patient Disposition: Home Clinical Impression: Acute pain of right lower extremity, At high risk for falls Fall Qualifiers: Encounter type: initial encounter Qualified Code(s): W19.XXXA - Unspecified fall, initial encounter Condition: Stable Prescriptions: No Action potassium chloride 10 mEq capsule, extended release 10 meq PO DAILY rosuvastatin [Crestor] 10 mg tablet 10 mg PO BEDTIME nitroglycerin 6.5 mg capsule, extended release 6.5 mg PO BID Rx Instructions: allow nitrate-free interval of approx. 10-12 hrs per 24-hour period donepezil 10 mg tablet 10 mg PO BEDTIME Eliquis 2.5 mg tablet 2.5 mg PO BID furosemide 20 mg tablet 20 mg PO DAILY PRN (Reason: Edema) cholecalciferol (vitamin D3) 125 mcg (5,000 unit) capsule 125 mcg PO DAILY omeprazole 20 mg capsule,delayed release(DR/EC) 20 mg PO BID metoprolol tartrate 25 mg tablet 25 mg PO BID Qty: 180 3RF trazodone 50 mg tablet 75 mg PO BEDTIME Discharge Orders: Discharge ED (Routine); Ordered 09/19/22 Ordered By: Nena Davis Referrals: July Velez APN [Primary Care Provider] - Activity Restrictions/Additional Instructions: Please have her follow-up with primary care later this week for re-evaluation. Patient is at continued risk for further falls. Please continue to remove all falling/tripping hazards from her home. Life Alert sometimes can be a good option for elderly patients. As we discussed her her urine appeared contaminated at this time but please monitor for signs or symptoms of UTI such as burning with urination, abdominal/back pain, altered mental status, fevers. Seek medical reevaluation if these occur. Coding Level of Care Code ED Ship Worker for Idalia De Leon
[2022-09-19 11:08] LABS: Basophils % 0.7 %; Eosinophils # 0.1 10^3/uL (0.0-0.8); Eosinophils % 1.5 %; Lymphocytes # 1.5 10^3/uL (0.8-4.8); Lymphocytes % 25.6 %; Mean Corpuscular HGB Conc 31.1 g/dL (30.0-36.0); Mean Corpuscular Hemoglobin 28.6 pg (28.0-34.0); Mean Corpuscular Volume 91.8 fl (81-99); Monocytes # 0.4 10^3/uL (0.2-0.9); Monocytes % 7.2 %; Neutrophils # 3.84 10^3/uL (1.8-7.7); Neutrophils % 64.7 %; Nucleated Red Blood Cells % 0 %; Platelet Count 201 10^3/cmm (130-400); Red Cell Distribution Width 13.4 % (12.1-15.1); White Blood Count 5.9 10^3/uL (4.0-10.0)
--- NOTE | 2022-09-19 11:11 | ECG_ITS ---
[facility] Test Date: 2022-09-19 Pat Name: Nubia Esparza Department: Room: Gender: Female Patient Svcs Mgr: : 1935 Requested By: Nena Davis Order Number: [id number] Balbina MD: Oleg Pena M.D. Measurements Intervals [place] Rate: 83 P: 0 WI: 0 QRS: -8 QRSD: 79 T: 3 QT: 362 QTc: 426 Interpretive Statements ATRIAL FIBRILLATION SEPTAL MYOCARDIAL INFARCTION , PROBABLY OLD [40+ ms Q WAVE IN V1/V2] Compared to ECG 11/22/2021 12:57:29 No significant changes Electronically Signed On 09-19-2022 16:53:38 CDT by Oleg Pena M.D. [id number]
[2022-09-19 11:31] LABS: Alanine Aminotransferase 15 U/L (0-33); Albumin Level 3.7 g/dL (3.5-5.2); Alkaline Phosphatase 75 U/L (35-105); Anion Gap 15.1 (5-19); Aspartate Amino Transferase 23 U/L (0-32); Blood Urea Nitrogen 10 mg/dL (8-23); Calcium 8.8 mg/dL (8.5-10.5); Carbon Dioxide 27 mmol/L (22-29); Chloride 103 mmol/L (98-107); Globulin 2.4 g/dL (1.3-4.6); Glucose 82 mg/dL (65-115); Osmolality Calculated 290 mOsm/kg (285-295); Potassium 4.1 mmol/L (3.5-5.1); Sodium 141 mmol/L (136-145); Total Bilirubin 0.6 mg/dL (0.15-1.2); Total Protein 6.1 g/dL (6.6-8.7)
[2022-09-19 11:32] LABS: Troponin(5th) Baseline 9 ng/L (0-10)
[2022-09-19 11:49] LABS: Creatine Phosphokinase 123 U/L (26-192)
[2022-09-19] MEDS: morphine 4 mg/mL SDV 1 mL IVP (12:10)
[2022-09-19] MEDS: ondansetron 2 mg/ML SDV 2 mL 4 MG IVP (12:10)
[2022-09-19 12:50] LABS: Urine Appearance Cloudy (CLEAR); Urine Color Dark Yellow (Yellow); pH Urine 5 (5-7)
[2022-09-19 12:51] LABS: Add Urine Microscopic? YES; Bacteria Urine 1+ /hpf; Bilirubin Urine 1+ (Negative); Blood Urine Neg (Negative); Glucose Urine UA Norm (Normal); Ketones Urine Negative (Negative); Leukocyte Esterase Urine 1+ (Negative); Mucus Urine 1+ /hpf; Nitrate Urine Negative (Negative); Protein Urine Neg (Negative); RBC Urine 0-4 /hpf (0-2); Squamous Epithelial Cell Urine 15-25 /hpf (0-5); Urobilinogen Urine 1 mg/dL (Negative); WBC Urine 25-40 /hpf (0-5)
--- NOTE | 2022-09-19 13:18 | ECG_ITS ---
[facility] Test Date: 2022-09-19 Pat Name: Nubia Esparza Department: Room: Gender: Female Business Account Executive: : 1935 Requested By: Nena Davis Order Number: [id number] Balbina MD: Oleg Pena M.D. Measurements Intervals [place] Rate: 89 P: 0 [place]: 0 QRS: -5 QRSD: 86 T: 2 QT: 373 QTc: 455 Interpretive Statements ATRIAL FIBRILLATION SEPTAL MYOCARDIAL INFARCTION , PROBABLY OLD [40+ ms Q WAVE IN V1/V2] Compared to ECG 09/19/2022 11:11:43 No significant changes Electronically Signed On 09-19-2022 16:58:18 CDT by Oleg Pena M.D. [id number]
[2022-09-19 13:19] LABS: Troponin 5 2HR 9.69 ng/L (0-10)
[2022-09-19 13:33] LABS: Troponin 5 2HR Delta 0.69 ABS# (0-10)
== END 2022-09-19 14:27 | disposition home or self-care (01) ==
PROVIDERS: Emergency Provider Physician Assistant; PCP Nurse Practitioner Family
DX: M79.604 Pain in right leg (principal); Z91.81 History of falling; Z79.01 Long term (current) use of anticoagulants; W19.XXXA Unspecified fall, initial encounter; I25.10 Atherosclerotic heart disease of native coronary artery without angina pectoris; E78.5 Hyperlipidemia, unspecified; I10 Essential (primary) hypertension
CPT/HCPCS: 36415; 70450; 71045; 72125; 73502; 73562; 80053; 81001; 82550; 84484; 85025; 93005; 96374; 96375; 99285; J2270; J2405

== ENCOUNTER → 2023-04-12 12:54 | Outpatient (BNVA) | payer MEDICARE, MEDICAID, SELFPAY | PROVIDERS: PCP Nurse Practitioner Family; Visit Provider Internal Medicine Cardiovascular Disease | DX: R06.02 Shortness of breath (principal) | CPT/HCPCS: 36415; 80048; 83880; 99214 ==

== ENCOUNTER → 2023-11-23 10:00 | Outpatient (BNVA) | payer MEDICARE, MEDICAID, SELFPAY | PROVIDERS: PCP Nurse Practitioner Family; Visit Provider Nurse Practitioner Family | DX: I10 Essential (primary) hypertension (principal); I25.10 Atherosclerotic heart disease of native coronary artery without angina pectoris; I48.20 Chronic atrial fibrillation, unspecified; Z79.01 Long term (current) use of anticoagulants | CPT/HCPCS: 99214 ==

== ENCOUNTER → 2024-02-18 11:02 | Outpatient (BNVA) | payer MEDICARE, MEDICAID, SELFPAY | PROVIDERS: PCP Nurse Practitioner Family; Visit Provider Internal Medicine Cardiovascular Disease | DX: R06.02 Shortness of breath (principal) | CPT/HCPCS: 36415; 80048; 83880 ==

== ENCOUNTER → 2024-09-22 14:19 | Outpatient (BNVA) | payer MEDICARE, MEDICAID, SELFPAY | PROVIDERS: PCP Nurse Practitioner Family; Visit Provider Internal Medicine Cardiovascular Disease | DX: R06.02 Shortness of breath (principal); I48.20 Chronic atrial fibrillation, unspecified; Z79.01 Long term (current) use of anticoagulants; I10 Essential (primary) hypertension; I34.0 Nonrheumatic mitral (valve) insufficiency; I25.10 Atherosclerotic heart disease of native coronary artery without angina pectoris; E78.2 Mixed hyperlipidemia; Z95.5 Presence of coronary angioplasty implant and graft | CPT/HCPCS: 80048; 83880; 99214 ==

== ENCOUNTER → 2025-05-04 10:49 | Outpatient (BNVA) | payer MEDICARE, MEDICAID, SELFPAY | PROVIDERS: PCP Nurse Practitioner Family; Visit Provider Nurse Practitioner Family | DX: E78.5 Hyperlipidemia, unspecified (principal); I10 Essential (primary) hypertension; I34.0 Nonrheumatic mitral (valve) insufficiency; I25.10 Atherosclerotic heart disease of native coronary artery without angina pectoris; I48.91 Unspecified atrial fibrillation; Z79.01 Long term (current) use of anticoagulants; Z98.61 Coronary angioplasty status | CPT/HCPCS: 99214 ==